=== PATIENT | female | born 1995 | race Caucasian/White ===

== ENCOUNTER → 2017-09-02 | Outpatient (CLI) | payer BC | END | disposition home or self-care (01) | LOC: CANPRECLI → RADFLMAIN 10:18 | PROVIDERS: ATTEND Family Medicine | DX: Z53.9 Procedure and treatment not carried out, unspecified reason (principal) ==

== ENCOUNTER → 2017-09-10 | Outpatient (CLI) | payer BC ==
--- NOTE | 2017-09-10 10:22 | FL ---
EXAMINATION TYPE: FL UGI DATE OF EXAM: 09/10/2017 COMPARISON: NONE HISTORY: Gastroesophageal reflux, epigastric pain TECHNIQUE: A double air contrast UGI study is performed. FINDINGS: Esophagus dilates to normal caliber has normal contour to the gastroesophageal junction. Ga stroesophageal junction opens to normal caliber. Multiple episodes of reflux to at least the level of the clavicles was evident during this examination. Fundus body and antrum of the stomach visualized are normal. Barium readily empties into the duodenal cap and sweep. Duodenum is in the normal position. Proximal small bowel loops are unremarkable. 1 minute 20 seconds of fluoroscopy time was provided for procedure. 23 images were obtained. IMPRESSIONS: 1. Gastroesophageal reflux to the level of the clavicles.
== END | disposition home or self-care (01) ==
LOC: RADFLMAIN 08:05
PROVIDERS: ATTEND Family Medicine
DX: K21.9 Gastro-esophageal reflux disease without esophagitis (principal)
CPT/HCPCS: 74240

== ENCOUNTER 2017-09-18 13:19 | Emergency (ER) | payer BC ==
[2017-09-18 14:32] LABS: Appearance,Urine Clear (Clear); Bilirubin,Urine Negative (Negative); Blood,Urine Negative (Negative); Color,Urine Colorless; Glucose,Urine (UA) Negative (Negative); Ketones,Urine Negative (Negative); Leukocyte Esterase,Urine Negative (Negative); Nitrite,Urine Negative (Negative); Protein,Urine Negative (Negative); Specific Gravity,Urine 1.002 (1.001-1.035); Urobilinogen,Urine <2.0 mg/dL (<2.0)
--- NOTE | 2017-09-18 14:36 | ED ---
Female Urogenital HPI - General Chief complaint: Urogenital Stated complaint: Urogenital Time Seen by Provider: 09/18/17 14:07 Source: patient, RN notes reviewed Mode of arrival: ambulatory Limitations: no limitations - History of Present Illness Initial comments: This is a 22-year-old female who presents with a chief complaint of increased urinary urgency and frequency. The symptoms began about 2 weeks ago, but have increased in severity significantly over the last 3 days. The patient now has nocturia and has a sensation of incomplete emptying which are new symptoms. She denies abdominal pain, but states that she constantly has a sensation of "fullness and pressure" in her pelvis. She was evaluated by her primary care provider who ordered a urinalysis and urine culture. Both of these were negative for any infection or abnormality. However, she was started on a course of Bactrim 3 days ago due to her strong history of urinary tract infections. She denies polydipsia, polyphagia, dysuria or burning with urination. She denies vaginal discharge and pruritus. - Related Data Home Medications Medication Instructions Recorded Confirmed Desogestrel-Ethinyl Estradiol 1 tab PO HS 01/01/16 09/18/17 [Desogen 28 Day Tablet] L.acidoph,Paracasei, B.lactis 1 cap PO DAILY 09/18/17 09/18/17 [Probiotic] Sulfamethox-Tmp 800-160Mg [Bactrim 1 tab PO Q12HR 09/18/17 09/18/17 DS 800-160 mg] Previous Rx's Medication Instructions Recorded Nystatin 100,000Unit/gm Cream 1 applic TOPICAL BID #15 gram 09/18/17 [Mycostatin Cream] Phenazopyridine [Pyridium] 200 mg PO TID #6 tablet 09/18/17 Allergies Allergy/AdvReac Type Severity Reaction Status Date / Time codeine Allergy Anaphylaxis Verified 09/18/17 13:52 hydromorphone HCl Allergy Anaphylaxis Verified 09/18/17 13:52 [From Dilaudid] Review of Systems ROS Statement: Those systems with pertinent positive or pertinent negative responses have been documented in the HPI. ROS Other: All systems not noted in ROS Statement are negative. Past Medical History Past Medical History: GERD/Reflux, Syncope Additional Past Medical History / Comment(s): See Dr Garcia's H&P for cardiac history History of Any Multi-Drug Resistant Organisms: None Reported Past Surgical History: Adenoidectomy, Tonsillectomy Past Anesthesia/Blood Transfusion Reactions: No Reported Reaction, Motion Sickness Past Psychological History: No Psychological Hx Reported Smoking Status: Never smoker Past Alcohol Use History: None Reported Past Drug Use History: None Reported - Past Family History Mother Family Medical History: No Reported History General Exam Limitations: no limitations General appearance: alert, in no apparent distress Head exam: Present: atraumatic, normocephalic, normal inspection Respiratory exam: Present: normal lung sounds bilaterally. Absent: respiratory distress, wheezes, rales, rhonchi, stridor Cardiovascular Exam: Present: tachycardia GI/Abdominal exam: Present: soft, normal bowel sounds. Absent: distended, tenderness, guarding, rebound, rigid, organomegaly External exam: Present: other (erythema and inflammation of the labia and urethral opening is noted with external exam. No evidence of ulcers, abscess, or abnormal lesions.) Speculum exam: Present: other (speculum exam did not reveal significant findings because a complete exam was unable to be performed. The patient experienced significant pain and discomfort from the speculum. Pelvic exam was performed by the female physician workforce development assistant student. The patient's mother was also present in the room with the patient's permission.) Back exam: Present: normal inspection. Absent: CVA tenderness (R), CVA tenderness (L) Neurological exam: Present: alert, oriented X3, CN II-XII intact Psychiatric exam: Present: normal affect, normal mood Skin exam: Present: warm, dry, intact, normal color. Absent: rash Course Vital Signs 09/18/17 13:27 Temperature 98.1 F Pulse Rate 108 H Respiratory 20 Rate Blood Pressure 132/87 O2 Sat by Pulse 99 Oximetry Medical Decision Making - Medical Decision Making 22-year-old female presented for urgency urinate, bladder and resultant discomfort. Patient urinalysis unremarkable she had prior urinalysis and urine culture which was negative. Patient potassium irritation and pain on sure surface of the urethra. We discussed that she should not use any soaps and area she needs to avoid bathing she should shower if needed. She'll follow up with urology. She does feel better after Pyridium here. We did discuss possibilities of interstitial cystitis versus urethral syndrome. Patient agrees that she'll follow up for further treatment. - Lab Data Lab Results 09/18/17 Range/Units 13:55 Urine Color Colorless Urine Appearance Clear (Clear) Urine pH 6.0 (5.0-8.0) Ur Specific [place] 1.002 (1.001-1.035) Urine Protein Negative (Negative) Urine Glucose (UA) Negative (Negative) Urine Ketones Negative (Negative) Urine Blood Negative (Negative) Urine Nitrite Negative (Negative) Urine Bilirubin Negative (Negative) Urine Urobilinogen <2.0 (<2.0) mg/dL Ur Leukocyte Esterase Negative (Negative) Disposition Clinical Impression: Urethral irritation, Bladder spasms Disposition: HOME SELF-CARE Condition: Stable Instructions: Interstitial Cystitis (ED) Additional Instructions: Please return to the Emergency Department if symptoms worsen or any other concerns. Prescriptions: Nystatin 100,000Unit/gm Cream [Mycostatin Cream] 1 applic TOPICAL BID #15 gram Phenazopyridine [Pyridium] 200 mg PO TID #6 tablet Referrals: Ashok Saez DO [Primary Care Provider] - 1-2 days Deepak Morillo MD [STAFF PHYSICIAN] - 1-2 days Time of Disposition: 16:32
[2017-09-18] MEDS ORDERED: PHENAZOPYRIDINE 200 MG TAB PO STA (14:48)
[2017-09-18 17:09] VITALS: BP 114/65; PULSE 81; RESP 18; TEMP 98.7
== END 2017-09-18 17:06 | disposition home or self-care (01) ==
LOC: EC 13:19
DX: N32.89 Other specified disorders of bladder (principal); N36.8 Other specified disorders of urethra; R00.0 Tachycardia, unspecified; N90.89 Other specified noninflammatory disorders of vulva and perineum; R35.1 Nocturia; Z79.3 Long term (current) use of hormonal contraceptives; Z79.899 Other long term (current) drug therapy; Z88.5 Allergy status to narcotic agent; Z87.440 Personal history of urinary (tract) infections
CPT/HCPCS: 51798; 81003; 99284

== ENCOUNTER 2019-06-13 01:49 | Emergency (ER) | payer BC ==
[2019-06-13 01:59] VITALS: BP 129/93; PULSE 82; RESP 20; TEMP 97.6
[2019-06-13] MEDS ORDERED: ONDANSETRON ODT 4 MG TAB PO STA (02:13)
[2019-06-13] MEDS ORDERED: DICYCLOMINE 10 MG CAP PO STA (02:13)
--- NOTE | 2019-06-13 02:16 | ED ---
Female Urogenital HPI - General Chief complaint: Urogenital Stated complaint: UTI Time Seen by Provider: 06/13/19 02:05 Source: patient Mode of arrival: ambulatory Limitations: no limitations - History of Present Illness Initial comments: Patient is a 24-year-old female with history of recurrent vaginal candidiasis and UTIs is presenting to the emergency department with a chief complaint of a UTI. Patient reports an onset of increased frequency urgency dysuria today. Patient states that she initially was suspecting a yeast infection. Patient reports that she was an [id number] treatment which has greatly increased pain. Patient does report some weight vaginal discharge. Patient states that she can see some blood when wiping. Patient is not concerned for STDs or . Patient does report chills but no fevers. Patient does report nausea but no vomiting or constipation. Patient denies taking any other medication to alleviate the symptoms. - Related Data Home Medications Medication Instructions Recorded Confirmed Desogestrel-Ethinyl Estradiol 1 tab PO HS 01/01/16 09/18/17 [Desogen 28 Day Tablet] L.acidoph,Paracasei, B.lactis 1 cap PO DAILY 09/18/17 09/18/17 [Probiotic] Sulfamethox-Tmp 800-160Mg [Bactrim 1 tab PO Q12HR 09/18/17 09/18/17 DS 800-160 mg] Previous Rx's Medication Instructions Recorded Nystatin 100,000Unit/gm Cream 1 applic TOPICAL BID #15 gram 09/18/17 [Mycostatin Cream] Phenazopyridine [Pyridium] 200 mg PO TID #6 tablet 09/18/17 Cephalexin [Keflex] 500 mg PO Q6HR #40 cap 06/13/19 Nystatin 100,000Unit/gm Cream 1 applic TOPICAL BID #15 gram 06/13/19 [Mycostatin Cream] Allergies Allergy/AdvReac Type Severity Reaction Status Date / Time codeine Allergy Anaphylaxis Verified 06/13/19 01:59 hydromorphone HCl Allergy Anaphylaxis Verified 06/13/19 01:59 [From Dilaudid] Review of Systems ROS Statement: Those systems with pertinent positive or pertinent negative responses have been documented in the HPI. ROS Other: All systems not noted in ROS Statement are negative. Past Medical History Past Medical History: GERD/Reflux, Syncope Additional Past Medical History / Comment(s): See Dr Garcia's H&P for cardiac history History of Any Multi-Drug Resistant Organisms: None Reported Past Surgical History: Adenoidectomy, Tonsillectomy Past Anesthesia/Blood Transfusion Reactions: Motion Sickness, No Reported Reaction Past Psychological History: No Psychological Hx Reported Smoking Status: Never smoker Past Alcohol Use History: Occasional Past Drug Use History: None Reported - Past Family History Mother Family Medical History: No Reported History General Exam Limitations: no limitations General appearance: alert, in no apparent distress Head exam: Present: atraumatic, normocephalic, normal inspection Eye exam: Present: normal appearance, PERRL, EOMI Pupils: Present: normal accommodation ENT exam: Present: normal exam, mucous membranes moist, normal external ear exam Neck exam: Present: normal inspection, full ROM Respiratory exam: Present: normal lung sounds bilaterally Cardiovascular Exam: Present: regular rate, normal rhythm, normal heart sounds GI/Abdominal exam: Present: soft, tenderness (Generalized suprapubic t enderness), normal bowel sounds. Absent: distended, guarding Extremities exam: Present: normal inspection, full ROM Back exam: Present: normal inspection, full ROM, CVA tenderness (R) Neurological exam: Present: alert, oriented X3 Psychiatric exam: Present: normal affect, normal mood Skin exam: Present: warm, intact, normal color Course Vital Signs 06/13/19 01:57 Temperature 97.6 F Pulse Rate 82 Respiratory 20 Rate Blood Pressure 129/93 O2 Sat by Pulse 96 Oximetry Medical Decision Making - Medical Decision Making Patient is a 24-year-old female with history of recurrent vaginal candidiasis and UTIs presenting to emergency Department with a chief complaint of a UTI. Patient is having classical signs of a UTI. Physical examination is remarkable for suprapubic tenderness. Patient does have right CVA tenderness. UA is indicative of what blood cells, red blood cells and leukocyte esterase. I suspect the patient to have pyelonephritis. Patient started on Keflex in the ED. Patient will be discharged with Keflex. Patient also given Zofran. Patient also given antifungal cream considering she gets recurrent vaginal candidiasis. Strict return parameters were thoroughly discussed the patient was or standing and agreeable. Case discussed with physician. - Lab Data Lab Results 06/13/19 06/13/19 Range/Units 02:06 02:06 Urine Color Light Yellow Urine Appearance Cloudy H (Clear) Urine pH 6.5 (5.0-8.0) Ur Specific [place] 1.018 (1.001-1.035) Urine Protein Negative (Negative) Urine Glucose (UA) Negative (Negative) Urine Ketones Negative (Negative) Urine Blood Moderate H (Negative) Urine Nitrite Negative (Negative) Urine Bilirubin Negative (Negative) Urine Urobilinogen <2.0 (<2.0) mg/dL Ur Leukocyte Esterase Large H (Negative) Urine RBC >182 H (0-5) /hpf Urine WBC >182 H (0-5) /hpf Urine WBC Clumps Many H (None) /hpf Ur Squamous Epith Cells 1 (0-4) /hpf Urine Bacteria Rare H (None) /hpf Urine Mucus Rare H (None) /hpf Urine HCG, Qual Not Detected (Not Detectd) Disposition Clinical Impression: Urinary tract infection Disposition: HOME SELF-CARE Condition: Stable Instructions (If sedation given, give patient instructions): Urinary Tract Infection in Women (ED) Additional Instructions: Please take prescribed medication as directed. Please follow up with primary care. Please return to emergency department is symptoms worsen. Prescriptions: Cephalexin [Keflex] 500 mg PO Q6HR #40 cap Nystatin 100,000Unit/gm Cream [Mycostatin Cream] 1 applic TOPICAL BID #15 gram Is patient prescribed a controlled substance at d/c from ED?: No Referrals: Ashok Saez DO [Primary Care Provider] - 1-2 days Time of Disposition: 02:50
[2019-06-13 02:23] LABS: Appearance,Urine Cloudy (Clear); Bacteria,Urine Rare /hpf; Bilirubin,Urine Negative (Negative); Blood,Urine Moderate (Negative); Color,Urine Light Yellow; Glucose,Urine (UA) Negative (Negative); Ketones,Urine Negative (Negative); Leukocyte Esterase,Urine Large (Negative); Mucus,Urine Rare /hpf; Nitrite,Urine Negative (Negative); PH, Urine 6.5 (5.0-8.0); Protein,Urine Negative (Negative); RBC,Urine >182 /hpf (0-5); Specific Gravity,Urine 1.018 (1.001-1.035); Squamous Epithelial Cell,Urine 1 /hpf (0-4); Urobilinogen,Urine <2.0 mg/dL (<2.0)
[2019-06-13] MEDS ORDERED: ONDANSETRON 4 MG ODT STARTER PACK 2 TAB BTL PO STA (02:32)
[2019-06-13] MEDS ORDERED: CEPHALEXIN 500MG STARTER PACK 4 CAP BTL PO STA (02:32)
== END 2019-06-13 02:58 | disposition home or self-care (01) ==
LOC: EC 01:49
DX: N39.0 Urinary tract infection, site not specified (principal); B37.3 Candidiasis of vulva and vagina; R11.0 Nausea; Z88.5 Allergy status to narcotic agent; Z79.3 Long term (current) use of hormonal contraceptives
CPT/HCPCS: 81001; 81025; 87086; 99283; S0119

== ENCOUNTER → 2020-02-22 | Outpatient (CLI) | payer BC | END | disposition home or self-care (01) | LOC: LABWHC1 11:30 | PROVIDERS: ATTEND Pediatrics Pediatric Infectious Diseases | DX: Z11.59 Encounter for screening for other viral diseases (principal) | CPT/HCPCS: U0003; C9803 ==

== ENCOUNTER → 2020-02-23 | Outpatient (CLI) | payer BC | END | disposition home or self-care (01) | LOC: LABWHC1 09:46 | PROVIDERS: ATTEND Pediatrics Pediatric Infectious Diseases | DX: Z11.59 Encounter for screening for other viral diseases (principal) | CPT/HCPCS: U0003; C9803 ==

== ENCOUNTER → 2020-06-03 | Outpatient (CLI) | payer BC | END | disposition home or self-care (01) | LOC: LABWHC1 12:42 | PROVIDERS: ATTEND Pediatrics Pediatric Infectious Diseases | DX: Z03.818 Encounter for observation for suspected exposure to other biological agents ruled out (principal) | CPT/HCPCS: U0003; C9803 ==

== ENCOUNTER → 2020-07-21 | Outpatient (CLI) | payer BC | END | disposition home or self-care (01) | LOC: LABMAIN 20:33 | PROVIDERS: ATTEND Physician Assistant | DX: Z20.828 Contact with and (suspected) exposure to other viral communicable diseases (principal) | CPT/HCPCS: 87635 ==

== ENCOUNTER → 2021-03-25 | Outpatient (CLI) | payer BC | END | disposition home or self-care (01) | LOC: LABMAIN 22:43 | PROVIDERS: ATTEND Emergency Medicine | DX: Z20.822 Contact with and (suspected) exposure to COVID-19 (principal) | CPT/HCPCS: 87635 ==

== ENCOUNTER → 2021-03-27 | Outpatient (CLI) | payer BC | END | disposition home or self-care (01) | LOC: LABWHC1 15:14 | PROVIDERS: ATTEND Emergency Medicine | DX: Z20.822 Contact with and (suspected) exposure to COVID-19 (principal) | CPT/HCPCS: U0003; C9803; U0005 ==